=== PATIENT | female | born 1950 | race Caucasian/White ===

== ENCOUNTER 2018-03-05 06:54 | Day surgery (SDC) | payer OTHER ==
[2018-03-05] MEDS ORDERED: MIDAZOLAM 1 MG/ML 2 ML INJ (09:30)
[2018-03-05] MEDS ORDERED: FENTAnyl 50 MCG/ML VIAL (09:30)
== END 2018-03-05 14:52 | disposition home or self-care (01) ==
LOC: GIL 06:54
DX: Z12.11 Encounter for screening for malignant neoplasm of colon (principal); D12.5 Benign neoplasm of sigmoid colon; K21.9 Gastro-esophageal reflux disease without esophagitis; K29.60 Other gastritis without bleeding; K44.9 Diaphragmatic hernia without obstruction or gangrene; K64.8 Other hemorrhoids; I10 Essential (primary) hypertension; E11.9 Type 2 diabetes mellitus without complications
CPT/HCPCS: 43239; 82962; 88305; 88312